=== PATIENT | female | born 1995 | race Caucasian/White ===

== ENCOUNTER 2016-08-08 23:03 | Emergency (ER) | payer OTHER ==
[2016-08-09 00:10] LABS: Hematocrit 37.9 % (37.0-47.0); Hemoglobin 13.1 gm/dL (12.5-16.0); Mean Cell Volume 86.1 fl (78-100); Mean Corpuscular Hemoglobin 29.8 pg (27-31); Mean Corpuscular Hgb Conc 34.6 g/dl (32-36); Mean Platelet Volume 9.4 fl (6.0-9.5); Neutrophil # 4.1 K/mm3 (1.3-6.0); Platelet Count 306 K/mm3 (150-450); Red Cell Distribution Width 13.6 % (11.5-14.0); White Blood Count 8.9 K/mm3 (4.0-10.5)
[2016-08-09 00:17] LABS: Urine Bilirubin Negative (NEGATIVE); Urine Blood Negative /ul (NEGATIVE); Urine Ketone 5 mg/dL (NEGATIVE); Urine Nitrite Negative (NEGATIVE); Urine Protein Negative (NEGATIVE); Urine Specific Gravity 1.015 SP.GR. (1.005-1.010); Urine Urobilinogen Normal (NORMAL); Urine pH 6.5 pH (5.0-7.0)
[2016-08-09 00:27] LABS: Urine Appearance Clear; Urine Bacteria None Seen; Urine Color Yellow; Urine RBC 0-5 /hpf (0-5); Urine WBC 0-5 /hpf (0-5)
--- NOTE | 2016-08-09 01:02 | ERNOTE ---
Abdominal HPI - Narrative Date of Service: 07/08/16 - General Chief Complaint: Abdominal Pain Time Seen by Provider: 08/08/16 23:52 Source: patient - Immun/Allergies/Home Medications Immunizatons: IMMUNIZATION HX Immunizations Up to Date No History of Influenza Vaccine Yes Hx Pneumococcal Vaccination No Allergies/Adverse Reactions: Allergies No Known Allergies Allergy (Verified 07/28/15 14:05) Home Medications: HOME MEDICATIONS Oseltamivir Phosphate [Tamiflu] 75 mg PO DAILY 08/08/16 [Last Taken Unknown] Pnv95/Ferrous Fumarate/FA [ Caplet] 1 each PO DAILY 08/08/16 [Last Taken Unknown] - History of Present Illness Narrative: here for mild left sided abd pain, worse when standing up or walking around. No vomiting. She is in her first trimester of . absolutely no vaginal symptoms or pelvic pain or vaginal bleeding Review of Systems - Review of Systems Constitutional: Present: no symptoms reported EYE: Present: no symptoms reported ENT: Present: no symptoms reported Respiratory: Present: no symptoms reported Cardiology: Present: no symptoms reported Gastrointestinal/Abdominal: Present: See HPI - Patient's Past Medical History Patient History - Medical: No pertinent hx Patient History - Cardiac/Respiratory: No pertinent hx Patient History - Cancer: No Hx of Cancer Patient History - Surgical Procedures: Other Patient History - Other: None LMP (females 10-50): other - Social History Living Situations: home Abuse History: No History of abuse Psych History: No pertinent hx Smoking Status: Former smoker Have you smoked in the past 12 months: Yes Do you dip or chew tobacco: No Alcohol Use: none Drug Use: none - Immunizations Immunizations Up to Date: No Hx Pneumococcal Vaccination: No History of Influenza Vaccine: Yes Physical Exam - Physical Exam General Appearance: Present: wd/wn, alert, no apparent distress Ears, Nose, Throat: Present: normal ENT inspection, hearing grossly normal Neck: Present: normal inspection, nontender Respiratory: Present: no respiratory distress, normal breath sounds, no accessory muscle use Cardiovascular/Chest: Present: regular rate, rhythm, no murmur Gastrointestinal/Abdominal: Present: normal bowel sounds, nontender, nondistended, soft, no organomegaly ED Progress - Results and Orders Patient's Lab Results:: I have reviewed the patient's lab results. - Vital Signs Patient's Vital Signs:: I have reviewed the patient's vital signs. Vital Signs: Vital Signs 08/08/16 23:10 Temperature 36.8 C Pulse Rate 76 Respiratory 16 Rate Blood Pressure 126/86 O2 Sat by Pulse 100 Oximetry - Progress/Reassessment Chief Complaint: Abdominal Pain Plan - Plan Plan: [place] [id number], exam is benign and belly is soft. I believe this is round ligament pain Departure - Departure Clinical Impression: Round ligament pain Disposition: Home self-care Condition: Good Instructions: Round Ligament Pain
[2016-08-09 01:13] VITALS: BP 111/67
== END 2016-08-09 01:05 | disposition home or self-care (01) ==
LOC: ER 23:03
DX: O26.891 Other specified pregnancy related conditions, first trimester (principal); R10.2 Pelvic and perineal pain; Z87.891 Personal history of nicotine dependence; Z3A.00 Weeks of gestation of pregnancy not specified

== ENCOUNTER 2017-01-17 17:48 | Inpatient (IN) | payer OTHER ==
[2017-01-17] MEDS ORDERED: RINGER'S SOLUTION,LACTATED 1,000 ML IV PRN (18:24)
[2017-01-17] MEDS ORDERED: OXYTOCIN/DEXTROSE 5%-WATER 30 UNITS/500 ML BAG IV ONE (18:41)
[2017-01-17] MEDS ORDERED: LIDOCAINE HCL 50 ML VIAL PERI PRN (18:41)
[2017-01-17] MEDS ORDERED: MISOPROSTOL 100 MCG TABLET VG PRN ×2 (18:41→19:23)
[2017-01-17] MEDS ORDERED: ONDANSETRON HCL/PF 2 MG/ML VIAL IV PRN (18:41)
[2017-01-17] MEDS ORDERED: RINGER'S SOLUTION,LACTATED 1,000 ML IV ONE (18:41)
[2017-01-17 18:55] LABS: Hematocrit 33.5 % (37.0-47.0); Hemoglobin 11.2 gm/dL (12.5-16.0); Mean Cell Volume 83.1 fl (78-100); Mean Corpuscular Hemoglobin 27.8 pg (27-31); Mean Corpuscular Hgb Conc 33.4 g/dl (32-36); Mean Platelet Volume 9.2 fl (6.0-9.5); Neutrophil # 5.6 K/mm3 (1.3-6.0); Neutrophil % 56.5 % (42-75.0); Platelet Count 322 K/mm3 (150-450); Red Blood Count 4.03 M/mm3 (4.2-5.4); Red Cell Distribution Width 13.3 % (11.5-14.0); White Blood Count 9.8 K/mm3 (4.0-10.5)
[2017-01-17 19:08] LABS: Albumin * 2.7 gm/dl (3.4-5.0); Anion Gap 12.6 mmol/L (6.8-13.8); BUN/Creatinine Ratio 6.3 (9.0-21.6); Bilirubin, Total 0.2 mg/dL (0.0-1.1); Ca. Corrected For Albumin 9.1 mg/dL (8.4-10.2); Calcium * 8.4 mg/dL (7.9-10.9); Carbon Dioxide 23.9 mmol/L (24-32.6); Potassium 3.5 mmol/L (3.4-4.6); Total Protein 6.8 gm/dL (6.2-8.2)
[2017-01-17 19:08] LABS: Random Urine Total Protein Less than 6.0 mg/dL (0-12)
[2017-01-17] MEDS: DEXTROSE 5%-LACTATED RINGERS 1,000 ML IV PRN (19:11)
[2017-01-17] MEDS ORDERED: PENICILLIN G POTASSIUM 5 MILLIONUNT in DEXTROSE 5 % IN WATER 100 ML IV ONE ×2 (20:00)
[2017-01-17] MEDS: PENICILLIN G POTASSIUM 2.5 MILLIONUNT in DEXTROSE 5 % IN WATER 100 ML IV SCH ×2 (23:51)
[2017-01-18] MEDS ORDERED: ACETAMINOPHEN 500 MG TABLET PO PRN (02:16)
[2017-01-18] MEDS ORDERED: ONDANSETRON HCL/PF 2 MG/ML VIAL IV PRN (02:58)
[2017-01-18] MEDS ORDERED: BUPIVACAINE HCL/0.9 % NACL/PF 250 ML EP PRN (02:58)
[2017-01-18] MEDS ORDERED: NALOXONE HCL 1 MG/1 ML SYRG IV PRN (02:58)
[2017-01-18] MEDS ORDERED: BUPIVACAINE HCL/PF 30 ML VIAL EP SCH (03:00)
--- NOTE | 2017-01-18 03:45 | OR ---
Anesthesia Procedure Note - Anesthesia Procedure Note Date of Service: 01/18/17 Narrative: Vital Signs - Last Taken Temp 36.3 C L 01/18/17 03:18 Pulse 91 01/18/17 03:18 Resp 20 01/18/17 03:18 BP 144/81 01/18/17 03:18 Pulse Ox 99 01/18/17 03:18 01/18/17 03:43 ANESTHESIA PROCEDURE NOTE Date of Procedure: 01/18/2017. Time of procedure: 324. Performed by: Sahil Hancock CRNA Branch Credit Counselor: None. Preprocedure diagnosis: Active labor. Post procedure diagnosis: Same. Procedure: Insertion of labor epidural. Indications: The patient is a 21 -year-old female in active labor requesting labor epidural for pain management. Findings: See below. Details of the procedure: The patient was placed in a sitting position. DuraPrep as well as Betadine swabs 3 was applied to the patient's back. Patient was then draped in a sterile fashion. Lidocaine 1% was infiltrated to the skin and subcutaneous tissues at the level of the L3-4 interspace. The epidural space was identified using a 18-gauge Tuohy needle with loss-of- resistance technique. Epidural catheter was inserted to a depth of 9 centimeters at skin. Negative test dose was elicited using 3 mL of 1.5% preservative-free lidocaine plus epinephrine 1 200,000. The epidural catheter was then taped and secured in place. A loading dose of 8 mL of 0.25% preservative-free bupivacaine was administered to the epidural catheter after negative aspiration for blood and CSF. EBL: Minimal. Fluids: N/A. Specimen: N/A. Post procedure condition: The patient tolerated the procedure well. No complications were noted. Thank you for this consultation. Sahil Hancock CRNA
[2017-01-18] MEDS: PENICILLIN G POTASSIUM 2.5 MILLIONUNT in DEXTROSE 5 % IN WATER 100 ML IV SCH ×2 (04:00)
[2017-01-18] MEDS: DEXTROSE 5%-LACTATED RINGERS 1,000 ML IV PRN (06:31)
[2017-01-18] MEDS ORDERED: PENICILLIN G POTASSIUM 2.5 MILLIONUNT in DEXTROSE 5 % IN WATER 100 ML IV SCH ×2 (08:00)
--- NOTE | 2017-01-18 08:04 | PN ---
Subjective - Date and Time Seen Date: 01/18/17 Time: 08:01 Objective - Vitals Vitals: Last Vital Signs Temp 36.3 C L 01/18/17 03:45 Pulse 72 01/18/17 03:45 Resp 20 01/18/17 03:45 BP 144/81 01/18/17 03:45 Pulse Ox 98 01/18/17 03:45 Patient comfortable with epidural Vital signs stable. Pitocin at 6 mu/min. FHT: 120 baseline, several late decelerations Contractions q 2-3 min Cervix: Complete/ +3 Impression: Intrauterine at 39-3/7 weeks induction of labor for preeclampsia Plan: Anticipate vaginal delivery soon if late decelerations persist will shorten second stage of labor with operative vaginal delivery - Abnormal Lab Findings Abnormal Lab Findings: Abnormal Lab Results 01/17/17 01/17/17 01/17/17 Range/Units 18:15 18:41 18:41 RBC 4.03 L (4.2-5.4) M/mm3 Hgb 11.2 L (12.5-16.0) gm/dL Hct 33.5 L (37.0-47.0) % Immature Gran % (Auto) 1.10 H (0.001-0.429) % Immature Gran # (Auto) 0.11 H (0.000-0.0310) K/mm3 Carbon Dioxide 23.9 L (24-32.6) mmol/L BUN/Creatinine Ratio 6.3 L (9.0-21.6) Alkaline Phosphatase 251 H (50-170) U/L Albumin 2.7 L (3.4-5.0) gm/dl Ur Random Creatinine 14.7 L (60-200) mg/dL U [place] Prot/Creat Ratio 408 H (0-199) mg/gm Cauti Physician Documentation - Urinary Catheter Management Urethral ([facility]) Date of Insertion: 01/17/17 Time of Insertion: 20:40
[2017-01-18] MEDS ORDERED: BISACODYL 10 MG SUPP.RECT RC PRN (09:23)
[2017-01-18] MEDS ORDERED: oxyCODONE HCL/ACETAMINOPHEN 1 TAB TABLET PO PRN (09:23)
[2017-01-18] MEDS ORDERED: OXYTOCIN/DEXTROSE 5%-WATER 30 UNITS/500 ML BAG IV ONE (09:23)
[2017-01-18] MEDS ORDERED: SENNOSIDES 8.6 MG TABLET PO PRN (09:23)
[2017-01-18] MEDS ORDERED: GLYCERIN/WITCH HAZEL LEAF 40 APPL BOX TP PRN (09:23)
[2017-01-18] MEDS ORDERED: HYDROCORTISONE 30 APPL TUBE TP PRN (09:23)
[2017-01-18] MEDS ORDERED: BENZOCAINE/MENTHOL 81 SPRAY CAN TP PRN (09:23)
--- NOTE | 2017-01-18 09:25 | OR ---
Operative Report - Dictated Report Narrative: Spontaneous vaginal delivery of viable male at 0834 on 01/18/2017 with Apgars 9 and 9, weighing 2862 g and AVTAR position. Loose nuchal cord 1. Right hand delivered across the chest up at the chin. Cord clamping delayed approximately 1 minute Placenta delivered complete, intact, with three vessel cord Estimated blood loss: 100 mL Lacerations: Bilateral periurethral lacerations (4 cm) repaired with 4-0 Vicryl Rapide.
[2017-01-18] MEDS: oxyCODONE HCL/ACETAMINOPHEN 1 TAB TABLET PO PRN ×2 (13:32→18:23)
[2017-01-18] MEDS: IBUPROFEN 800 MG TABLET PO PRN (13:33)
[2017-01-18] MEDS: DOCUSATE SODIUM 100 MG CAPSULE PO SCH (20:56)
[2017-01-19] MEDS: IBUPROFEN 800 MG TABLET PO PRN ×3 (00:24→17:53)
[2017-01-19] MEDS: oxyCODONE HCL/ACETAMINOPHEN 1 TAB TABLET PO PRN ×3 (00:24→21:10)
[2017-01-19] MEDS: DOCUSATE SODIUM 100 MG CAPSULE PO SCH ×2 (09:09→20:02)
--- NOTE | 2017-01-19 14:35 | PN ---
Subjective - Date and Time Seen Date: 01/19/17 Time: 14:34 Objective - Vitals Vitals: Last Vital Signs Temp 36.7 C 01/19/17 06:50 Pulse 85 01/19/17 06:50 Resp 18 01/19/17 06:50 BP 119/71 01/19/17 06:50 Pulse Ox 98 01/19/17 06:50 Patient denies complaints. Lochia wnl Abdomen - soft, nontender Uterus - firm, at umbilicus - 1 No calf tenderness Impression: day #1 - s/p spontaneous vaginal delivery. Preeclampsia- resolved. Plan: Continue routine care Cauti Physician Documentation - Urinary Catheter Management Urethral ([facility]) Date of Insertion: 01/17/17 Time of Insertion: 20:40 Date of Removal: 01/18/17 Time of Removal: 13:30
[2017-01-20 07:49] VITALS: BP 116/64
[2017-01-20] MEDS: DOCUSATE SODIUM 100 MG CAPSULE PO SCH (09:32)
--- NOTE | 2017-01-20 11:32 | PN ---
Subjective - Date and Time Seen Date: 01/20/17 Time: 11:30 Objective - Vitals Vitals: Last Vital Signs Temp 37 C 01/20/17 07:46 Pulse 88 01/20/17 07:46 Resp 20 01/20/17 07:46 BP 116/64 01/20/17 07:46 Pulse Ox 98 01/20/17 07:46 Patient denies complaints. No headache, visual changes, epigastric pain, or edema. Blood pressures all within normal limits. Weight still up at 78.3 kg, admission weight 77 kg. Lochia wnl Abdomen - soft, nontender Uterus - firm, at umbilicus - 2 No calf tenderness DTR-2/4 Impression: day #2 - s/p spontaneous vaginal delivery. Preeclampsia- resolving Plan: Routine discharge instructions. Preeclampsia precautions. Follow-up in 1 week for blood pressure check. Cauti Physician Documentation - Urinary Catheter Management Urethral ([facility]) Date of Insertion: 01/17/17 Time of Insertion: 20:40 Date of Removal: 01/18/17 Time of Removal: 13:30
== END 2017-01-20 13:00 | disposition home or self-care (01) | DRG 775 ==
LOC: OBCLINIC 17:48 → OB 18:46 → MS 01-18 19:17
PROVIDERS: ADMIT Obstetrics & Gynecology; ATTEND Obstetrics & Gynecology
PROC: 10E0XZZ Delivery of Products of Conception, External Approach (ICD-10-PCS; principal; 2017-01-18)
PROC: 4A1HXCZ Monitoring of Products of Conception, Cardiac Rate, External Approach (ICD-10-PCS; 2017-01-18)
PROC: 00HU33Z Insertion of Infusion Device into Spinal Canal, Percutaneous Approach (ICD-10-PCS; 2017-01-18)
DX: O14.04 Mild to moderate pre-eclampsia, complicating childbirth (principal); O69.81X0 Labor and delivery complicated by cord around neck, without compression, not applicable or unspecified; O70.0 First degree perineal laceration during delivery; O99.824 Streptococcus B carrier state complicating childbirth; Z3A.39 39 weeks gestation of pregnancy; Z37.0 Single live birth
CPT/HCPCS: 36415; 59025; 80053; 82570; 84156; 85025; J2405